=== PATIENT | female | born 1985 | race Two or more races ===

== ENCOUNTER 2017-09-24 09:55 | Emergency (ER) | payer SELFPAY ==
[~2017-09-24] VITALS: Ht 157.5 cm; Wt 86.2 kg
--- NOTE | 2017-09-24 10:00 | NUR ---
PT CAME IN WITH C/O FEVER, CHILLS, BODY ACHE. NO FLU SHOT. SEEN BY MD FOR EVAL. VSS. SAFETY AND COMFORT MEASURES PROVIDED. WILL MONITOR.
[2017-09-24] MEDS ORDERED: IBUPROFEN 600 MG TABLET PO ONE ×2 (10:20→10:30)
[2017-09-24] MEDS ORDERED: ACETAMINOPHEN ES 500 MG TABLET ONE (10:20)
--- NOTE | 2017-09-24 10:25 | NUR ---
PT MEDICATED ORDERED.
[2017-09-24] MEDS ORDERED: ACETAMINOPHEN ES 500 MG TABLET PO ONE (10:30)
--- NOTE | 2017-09-24 11:10 | NUR ---
Patient discharged to home in stable condition. Written and verbal after care instructions given. Patient verbalizes understanding of instruction.
[2017-09-24 11:40] VITALS: BP 108/61
== END 2017-09-24 11:41 | disposition home or self-care (01) ==
LOC: ER 09:59
DX: J06.9 Acute upper respiratory infection, unspecified (principal)
CPT/HCPCS: 99283; A4606; Z7610

== ENCOUNTER 2021-03-14 14:34 | Emergency (ER) | payer SELFPAY ==
[~2021-03-14] VITALS: Ht 162.6 cm; Wt 117.9 kg
--- NOTE | 2021-03-14 15:23 | NUR ---
ER/RN PT C/O OF VAGINAL BLEEDING SECOND DAY.ABDOMINAL CRAMPS,WEAKNESS.HX OF ANEMIA.MD SEEN THE PT .IV STARTED AND BLOOD DRAW.UA SPECIMENT SEND TO LAB.
[2021-03-14 15:27] LABS: BASOPHILS # (AUTO) 0.1 /CMM (0.0-0.2); EOSINOPHILS % (AUTO) 2.4 % (0.0-6.0); HEMATOCRIT 37 % (33-45); HEMOGLOBIN 11.6 g/dL (11.5-14.8); LYMPHOCYTES # (AUTO) 2.3 /CMM (0.8-4.8); LYMPHOCYTES % (AUTO) 24.4 % (20.0-44.0); MEAN CORPUSCULAR HGB CONC 31 g/dl (31.0-36.0); MEAN CORPUSCULAR VOLUME 74 fL (82-100); MONOCYTES # (AUTO) 0.6 /CMM (0.1-1.30); MONOCYTES % (AUTO) 6.8 % (2.0-12.0); NEUTROPHILS # (AUTO) 6.2 /CMM (1.8-8.9); NEUTROPHILS % (AUTO) 65.4 % (43.0-81.0); PLATELET COUNT (AUTO) 379 /CMM (150-450); RED BLOOD CELL COUNT(AUTO) 5.06 MIL/uL (4.0-5.2); WHITE BLOOD COUNT (AUTO) 9.5 K/uL (4.3-11.0)
[2021-03-14] MEDS ORDERED: MORPHINE SULFATE INJ 2 MG/ML DISP.SYRIN IV ONE (15:30)
--- NOTE | 2021-03-14 15:33 | NUR ---
U/S TECH AT BEDSIDE FOR PELVIC ULTRASOUND.
--- NOTE | 2021-03-14 15:33 | NUR ---
PT REFUSING ORDERED PAIN MEDICINE AT THIS TIME.
[2021-03-14 15:36] LABS: CALCIUM, SERUM 9.1 mg/dL (8.5-10.1); CREATININE 0.6 mg/dL (0.6-1.3); POTASSIUM 3.4 mmol/L (3.5-5.1)
[2021-03-14 15:42] LABS: ALBUMIN 3.8 g/dL (3.4-5.0); BILIRUBIN,TOTAL 0.2 mg/dL (0.2-1.0); TOTAL PROTEIN, SERUM 7.8 g/dL (6.4-8.2)
[2021-03-14] MEDS ORDERED: MORPHINE SULFATE INJ 4 MG/ML DISP.SYRIN ONE (16:02)
[2021-03-14 16:12] LABS: BAND % (MANUAL) 1 % (0.0-5.0); EOSINOPHILS % (MANUAL) 6 % (0-4); LYMPHOCYTES % (MANUAL) 23 % (16-48); MONOCYTES % (MANUAL) 6 % (0-11.0); NEUTROPHILS % (MANUAL) 64 (42-76)
[2021-03-14] MEDS ORDERED: ACET-73 PO (16:16)
--- NOTE | 2021-03-14 17:07 | NUR ---
Patient discharged to home in stable condition. Written and verbal after care instructions given. Patient verbalizes understanding of instruction.IV removed. Catheter intact and site benign. Pressure and 4x4 applied to site. No bleeding noted.
[2021-03-14 17:08] VITALS: BP 132/76
== END 2021-03-14 17:08 | disposition home or self-care (01) ==
LOC: ER 14:39
DX: D25.9 Leiomyoma of uterus, unspecified (principal); N93.8 Other specified abnormal uterine and vaginal bleeding
CPT/HCPCS: 36415; 76856; 80048; 80076; 84703; 85007; 85025; 85730; 86850; 96374; 99284; J2270

== ENCOUNTER 2021-12-23 14:11 | Emergency (ER) | payer BC ==
[~2021-12-23] VITALS: Ht 157.5 cm; Wt 104.8 kg
[~2021-12-23 14:11] MED LIST: ACET-73 PO
--- NOTE | 2021-12-23 14:11 | NUR ---
PT BIB SELF C/O HEADACHE X 1 MONTH AND WORST TODAY. PT IS AAOX4, NOT IN RESPIRATORY DISTRESS, V/S STABLE, KEPT RESTED AND COMFORTABLE. WILL CONTINUE TO MONITOR.
[2021-12-23] MEDS ORDERED: SUMATRIPTAN SUCCINATE 6 MG/0.5 ML VIAL SQ ONE ×2 (15:00→15:09)
[2021-12-23] MEDS ORDERED: KETOROLAC TROMETHAMINE INJ 30 MG/ML VIAL IV ONE (15:00)
[2021-12-23] MEDS ORDERED: IV NS 0.9% 1,000 ML BAG IV ONE (15:00)
[2021-12-23] MEDS ORDERED: METOCLOPRAMIDE HCL 10 MG/2 ML VIAL IV ONE ×2 (15:00→16:30)
[2021-12-23] MEDS ORDERED: PROCHLORPERAZINE EDISYLATE 10 MG/2 ML VIAL IVP ONE (15:00)
[2021-12-23] MEDS ORDERED: METOCLOPRAMIDE HCL 10 MG/2 ML VIAL ONE ×2 (15:09→16:20)
[2021-12-23] MEDS ORDERED: KETOROLAC TROMETHAMINE 15 MG/ML VIAL ONE (15:09)
[2021-12-23] MEDS ORDERED: PROCHLORPERAZINE EDISYLATE 10 MG/2 ML VIAL ONE (15:09)
--- NOTE | 2021-12-23 15:20 | NUR ---
IV LINE ESTABLISHED G20 R HAND.
--- NOTE | 2021-12-23 16:27 | NUR ---
PT SIGNED WAIVER STATING SHE IS NOT AND AGREED TO RECEIVED TORADOL 15MG IVP.
[2021-12-23] MEDS ORDERED: DIHYDROERGOTAMINE MESYLATE 1 MG/ML AMPUL IV ONE (16:30)
[2021-12-23] MEDS ORDERED: IV NS 0.9% 1,000 ML IV ONE (16:30)
[2021-12-23] MEDS ORDERED: SUMA100T PO (17:09)
[2021-12-23] MEDS ORDERED: IBUP-1957 PO (17:09)
[2021-12-23] MEDS ORDERED: DEXAMETHASONE SOD PHOSPHATE 10 MG/ML VIAL ONE (17:09)
[2021-12-23] MEDS ORDERED: DEXAMETHASONE SOD PHOSPHATE 10 MG/ML VIAL IV ONE (17:30)
--- NOTE | 2021-12-23 17:36 | NUR ---
IV removed. Catheter intact and site benign. Pressure and 4x4 applied to site. No bleeding noted. Patient discharged to home in stable condition. Written and verbal after care instructions given. Patient verbalizes understanding of instruction.
[2021-12-23 17:38] VITALS: BP 117/68
== END 2021-12-23 17:45 | disposition home or self-care (01) ==
LOC: ER 14:12
DX: G43.909 Migraine, unspecified, not intractable, without status migrainosus (principal); Z90.49 Acquired absence of other specified parts of digestive tract; Z79.899 Other long term (current) drug therapy
CPT/HCPCS: 70450; 96361; 96372; 96374; 96375; 96376; 99285; J0780; J1100; J1110; J1885; J2765 ×2; J3030; J7030 ×2